=== PATIENT | female | born 1960 | race Caucasian/White ===

== ENCOUNTER 2019-06-18 23:27 | Inpatient (IN) | payer OTHER ==
[~2019-06-18] VITALS: Ht 170.2 cm; Wt 147.4 kg
--- NOTE | 2019-06-19 00:01 | NUR ---
PT BIB [facility] TO ED WITH PT C/O RIGHT FLANK PAIN, RIGHT SHOULDER PAIN THAT RADIATES TO RIGHT WRIST. PT STATES WHEN SHE TAKES A DEEP BREATH SHE HAS INCREASE IN PAIN. PT HAS PAIN TO PALPATION WELL. PT STATES TO PAIN SINCE TODAY AM, DENEIS URINARY SYMTPOMS AT THIS TIME. PT STATES SHE HAD SIMILAR PAIN IN THE PAST AND WAS GALLSTONES AND/OR KIDNEY. DOES NOT RECALL IF GALLBLADDER WAS REMOVED. PT A&OX4,NO ACUTE DISTRESS NOTED, RATES PAIN 20/10 AT THIS TIME. PT ALSO STATES SHE WAS SEEN BY PCP WITH BLOOD WORK THAT CAME BACK NORMAL "FEW DAYS AGO". MSE COMPLETED BY .
[2019-06-19 00:45] LABS: CALCIUM 9.7 mg/dL (8.5-10.1); CHLORIDE SERUM 102 mmol/L (98-107); CREATININE SERUM 0.6 mg/dL (0.6-1.0); GFR1 > 60 mL/min; GLUCOSE SERUM 148 mg/dL (74-106); POTASSIUM SERUM 3.9 mmol/L (3.5-5.1); SODIUM SERUM 140 mmol/L (136-145)
[2019-06-19 00:51] LABS: ALKALINE PHOSPHATASE 107 U/L (46-116); ALT/SGPT 53 U/L (14-59); AST/SGOT 48 U/L (15-37); BILIRUBIN TOTAL 0.6 mg/dL (0.20-1.00); LIPASE 78 IU/L (73-393); TOTAL PROTEIN, SERUM 7.5 g/dL (6.4-8.2)
[2019-06-19 01:05] LABS: BASOPHIL % 0.2 % (0-2); PLATELET COUNT 180 x10^3mcL (130-400); RED CELL DISTRIBUTION WIDTH 15.1 % (11.5-14.5)
--- NOTE | 2019-06-19 01:26 | NUR ---
PT STRAIGHT CATH PERFORMED. 150 CC OF YELLOW URINE OUTPUT. PT TOLERATED PROCEDURE WELL
--- NOTE | 2019-06-19 01:53 | NUR ---
MULTIPLE ATTEMPTS FOR IV. UNSUCCESSFUL
--- NOTE | 2019-06-19 02:38 | NUR ---
PORTABLE XRAY AT BEDSIDE
--- NOTE | 2019-06-19 03:39 | NUR ---
PT RESTING IN ED [place] AT THIS TIME. PT IS LAYING IN POSITION OF COMFORT. PT CALL LIGHT WITH IN REACH. PT LAYING ON LEFT SIDE. PT RESPS ARE E/U. NO ACD NOTED
--- NOTE | 2019-06-19 04:52 | NUR ---
PT SLEEPING IN ED GURNEY. PT IS EASILY AROUSABLE. ABIODUN CHEST RISE AND FALL NOTED. RESPS ARE E/U. PT BED IN LOWEST POSITION FOR PT SAFETY. CALL LIGHT WITHIN REACH OF PT. NO ACD NOTED
--- NOTE | 2019-06-19 07:08 | NUR ---
PT RESTING IN ED [facility] AT THIS TIME. PT RESTING ON RIGHT SIDE AT THIS TIME. PT HAS CALL LIGHT WITHIN REACH. PT IS A/O X4. PT RESPSARE E/U. NO ACD NOTED
--- NOTE | 2019-06-19 07:30 | NUR ---
GAVE PT REPORT TO YENNI PREAZA WHO TOOK REPORT FROM ME FOR THE PRIMARY RN WOJCIECH. EDILMAIN WILL BE PRIMARY RN ONCE PT IS TAKEN TO THE MED SURG FLOOR
--- NOTE | 2019-06-19 07:40 | NUR ---
RECEIVED FROM ER VIA JAM ERICKSON. NO RESP DISTRESS NOTED. O2 2LPN N/C MAINTAINED, O2SAT 96% HX OF COPD STATED USE HOME O2 2LPM N/C. OBESITY STATED USE ELECTRIC WHEHCHAIR AT HOME. NON AMBULATORY. SAVAGE CATH DRIANING TO GRAVITY YELLOW URINE IN COLOR. NO SKIN BREAKDOWN NOTED. S/L TO RAC INTACT AND PATENT. STATED HAVING BACK PAIN RADIATING TO RLQ. ORIENTING TO ROOM ENVIRONMENT. CALL LIGHT PLACED WITHIN EASY REACH. SIDERAILS UP X2.
[2019-06-19 08:13] VITALS: BP 140/66
[2019-06-19] MEDS ORDERED: ASPIR 8181 MG PO (09:14)
[2019-06-19] MEDS ORDERED: BACLOFEN5 MG PO (09:15)
[2019-06-19] MEDS ORDERED: DULOXETINE HYDR60 MG PO (09:15)
[2019-06-19] MEDS ORDERED: FORTAMET500 M1 PO (09:18)
[2019-06-19] MEDS ORDERED: ZESTRIL40 MG PO (09:18)
[2019-06-19] MEDS ORDERED: TOPROL XL50 MG PO (09:19)
[2019-06-19] MEDS ORDERED: PAXIL40 M1 PO (09:19)
[2019-06-19] MEDS ORDERED: ZYLOPRIM300 MG PO (09:20)
[2019-06-19] MEDS ORDERED: TRAZODONE150 M1 PO (09:21)
--- NOTE | 2019-06-19 09:59 | NUR ---
CALLED DOCTOR NUBIA FOR PAIN MEDICATION, DOCTOR DELACRUZ CALLED BACK AND NEW ORDER FOR TRAMADOL GIVEN VIA PHONE. WILL BE CARRIED OUT.
--- NOTE | 2019-06-19 10:44 | NUR ---
TRAMADOL 50MG PO GIVEN FOR PAIN. WILL BE MONITORED.
[2019-06-19 11:21] VITALS: BP 140/66
--- NOTE | 2019-06-19 12:10 | NUR ---
SEEN BY KALPANA ZFAAR. PATIENT WILL BE DISCHARGED HOME. PER DOCTOR NUBIA HE ALREADY SPOKE TO PATIENT'S DAUGHTER ON THE PHONE.
[2019-06-19] MEDS ORDERED: IBU600 M2 PO (12:14)
[2019-06-19] MEDS ORDERED: PROTONIX TR40 M1 PO (12:15)
--- NOTE | 2019-06-19 12:15 | NUR ---
RT MADE AWARE OF ABG ORDER.
[2019-06-19 12:27] VITALS: BP 149/84
--- NOTE | 2019-06-19 15:40 | NUR ---
HAD LARGE FORMED BM, GENARO CARE PROVIDED. DIAPER CHANGED PER PATIET'S REQUEST PRIOR TO DISCHARGE HOME.
--- NOTE | 2019-06-19 16:39 | NUR ---
DISCHARGE INSTRUCTION EXPLAINED AND GIVEN TO PATIENT WHO IS AWAKE, ALERT, ORIENTED X4. PATIENT MADE AWARE THAT SHE WILL BE PICKING UP BY [facility] TRANSPORT WITH BARIATRIC GURNEY. NO ANY DISTRESS NOTED AT THIS TIME.
--- NOTE | 2019-06-19 17:15 | NUR ---
S/L TO RAC REMOVED WITH CATHETER INTACT, DRSG APPLIED. SAVAGE CATHETER REMOVED WITH 1200 ML URINE IN COLOR OUTPUT. TRANSFERED TO BARIATRIC [facility], NO ANY DISTRESS NOTED. DISCHARGE HOME WITH STABLE CONDITION.
== END 2019-06-19 17:16 | disposition home or self-care (01) | DRG 143 ==
LOC: ED 23:27 → MU 06-19 02:47
PROVIDERS: Emergency Medicine; ADMIT Internal Medicine Pulmonary Disease
DX: J90 Pleural effusion, not elsewhere classified (principal); J96.11 Chronic respiratory failure with hypoxia; Z99.81 Dependence on supplemental oxygen; E66.2 Morbid (severe) obesity with alveolar hypoventilation; E11.9 Type 2 diabetes mellitus without complications; M10.9 Gout, unspecified; I10 Essential (primary) hypertension; F41.9 Anxiety disorder, unspecified; G47.00 Insomnia, unspecified; F32.9 Major depressive disorder, single episode, unspecified; G89.29 Other chronic pain; M54.89 Other dorsalgia; Z86.12 Personal history of poliomyelitis; Z79.84 Long term (current) use of oral hypoglycemic drugs; Z91.14 Patient's other noncompliance with medication regimen; Z88.0 Allergy status to penicillin; Z90.49 Acquired absence of other specified parts of digestive tract; Z90.710 Acquired absence of both cervix and uterus; Z79.82 Long term (current) use of aspirin; Z79.899 Other long term (current) drug therapy
CPT/HCPCS: 36600; 82962; 83880; G0378; J1650; J7620; Q0092; Q9967

== ENCOUNTER 2019-07-12 16:19 | Emergency (ER) | payer OTHER ==
[~2019-07-12] VITALS: Ht 170.2 cm; Wt 147.4 kg
[~2019-07-12 16:19] MED LIST: ASPIR 8181 MG PO; BACLOFEN5 MG PO; DULOXETINE HYDR60 MG PO; FORTAMET500 M1 PO; IBU600 M2 PO; PAXIL40 M1 PO; PROTONIX TR40 M1 PO; TOPROL XL50 MG PO; TRAZODONE150 M1 PO; ZESTRIL40 MG PO; ZYLOPRIM300 MG PO
[2019-07-12 16:34] VITALS: Ht 170.2 cm; Wt 147.4 kg
[2019-07-12 18:57] LABS: UA SPECIFIC GRAVITY 1.025 (1.005-1.035); microscopic required? YES; urine erythrocyte 1+ (NEGATIVE)
[2019-07-12 19:00] LABS: CALCIUM 10.3 mg/dL (8.5-10.1); CREATININE SERUM 1.6 mg/dL (0.6-1.0); POTASSIUM SERUM 4.9 mmol/L (3.5-5.1)
[2019-07-12 19:04] LABS: ALBUMIN 3.3 g/dL (3.4-5.0); BILIRUBIN TOTAL 0.82 mg/dL (0.20-1.00); TOTAL PROTEIN, SERUM 8.3 g/dL (6.4-8.2)
[2019-07-12 19:26] LABS: BASOPHIL % 0.3 % (0-2); PLATELET COUNT 296 x10^3mcL (130-400); RED CELL DISTRIBUTION WIDTH 15.2 % (11.5-14.5)
[2019-07-13 01:47] VITALS: BP 115/65
== END 2019-07-13 01:51 | disposition home or self-care (01) ==
LOC: ED 16:19
PROVIDERS: Emergency Medicine
DX: N39.0 Urinary tract infection, site not specified (principal); J44.9 Chronic obstructive pulmonary disease, unspecified; I10 Essential (primary) hypertension; Z88.0 Allergy status to penicillin
CPT/HCPCS: J0696; J1885; J2405; Q0092

== ENCOUNTER 2019-09-16 21:13 | Emergency (ER) | payer OTHER ==
[~2019-09-16] VITALS: Ht 170.2 cm; Wt 181.4 kg
[2019-09-16 21:18] VITALS: Ht 170.2 cm; Wt 181.4 kg
[2019-09-16] MEDS ORDERED: GABAPENTIN100 M2 PO (21:48)
[2019-09-17 15:22] VITALS: BP 120/60
== END 2019-09-17 15:22 | disposition home or self-care (01) ==
LOC: ED 21:13
DX: M54.5 Low back pain (principal); R06.02 Shortness of breath; J44.9 Chronic obstructive pulmonary disease, unspecified; I10 Essential (primary) hypertension; E11.9 Type 2 diabetes mellitus without complications; Z87.442 Personal history of urinary calculi; Z90.710 Acquired absence of both cervix and uterus
CPT/HCPCS: J1885; J7030

== ENCOUNTER 2019-09-30 03:45 | Inpatient (IN) | payer OTHER ==
[2019-09-30] VITALS (7 sets, daily range): BP systolic 102–146; BP diastolic 43–70; Ht 170.2 cm; Wt 67.1 kg
[~2019-09-30] VITALS: Ht 170.2 cm; Wt 67.1 kg
[~2019-09-30 03:45] MED LIST changes: +GABAPENTIN100 M2 PO
[2019-09-30 04:34] LABS: UA SPECIFIC GRAVITY 1.015 (1.005-1.035); microscopic required? YES; urine erythrocyte 1+ (NEGATIVE)
[2019-09-30 04:34] LABS: BASOPHIL % 0.6 % (0-2); PLATELET COUNT 177 x10^3mcL (130-400)
[2019-09-30 04:36] LABS: RED CELL DISTRIBUTION WIDTH 15.5 % (11.5-14.5)
[2019-09-30 04:37] LABS: CALCIUM 9.4 mg/dL (8.5-10.1); CARBON DIOXIDE 34.4 mmol/L (21-32); CHLORIDE SERUM 105 mmol/L (98-107); CREATININE SERUM 0.8 mg/dL (0.6-1.0); GFR1 > 60 mL/min; GLUCOSE SERUM 131 mg/dL (74-106); POTASSIUM SERUM 4.2 mmol/L (3.5-5.1); SODIUM SERUM 145 mmol/L (136-145)
[2019-09-30 04:41] LABS: ALKALINE PHOSPHATASE 149 U/L (46-116); ALT/SGPT 42 U/L (14-59); AST/SGOT 42 U/L (15-37); BILIRUBIN TOTAL 0.2 mg/dL (0.20-1.00); TOTAL PROTEIN, SERUM 6.9 g/dL (6.4-8.2)
[2019-09-30 04:42] LABS: ALBUMIN 2.8 g/dL (3.4-5.0)
[2019-09-30 07:16] LABS: CHOLESTEROL/HDL RATIO 4.4
[2019-09-30 07:26] LABS: FREE T4 1.14 ng/dL (0.76-1.46); FREE THYROXINE INDEX 2.9 ug/dL (1.4-4.5); T4(THYROXINE) 8.8 ug/dL (4.7-13.3)
[2019-09-30 07:38] LABS: T3 TOTAL 1.66 ng/mL
[2019-10-01 06:00] VITALS: BP 114/54
[2019-10-01 06:50] LABS: CALCIUM 9.8 mg/dL (8.5-10.1); CARBON DIOXIDE 38.6 mmol/L (21-32); CHLORIDE SERUM 103 mmol/L (98-107); CREATININE SERUM 0.7 mg/dL (0.6-1.0); GFR1 > 60 mL/min; GLUCOSE SERUM 124 mg/dL (74-106); MAGNESIUM 1.7 mg/dL (1.8-2.4); POTASSIUM SERUM 4.4 mmol/L (3.5-5.1); SODIUM SERUM 142 mmol/L (136-145)
[2019-10-01 07:28] LABS: BASOPHIL % 0.3 % (0-2); PLATELET COUNT 192 x10^3mcL (130-400); RED CELL DISTRIBUTION WIDTH 15.6 % (11.5-14.5)
[2019-10-01 08:02] VITALS: BP 113/51
[2019-10-01 12:40] VITALS: BP 116/48
[2019-10-01 14:44] LABS: C REACTIVE PROTEIN 5.2 mg/dL (<=0.9)
[2019-10-01 21:49] VITALS: BP 105/58
[2019-10-02 06:07] VITALS: BP 108/58
[2019-10-02 06:59] LABS: BASOPHIL % 0.4 % (0-2); PLATELET COUNT 222 x10^3mcL (130-400)
[2019-10-02 07:04] LABS: C REACTIVE PROTEIN 4.1 mg/dL (<=0.9); CHLORIDE SERUM 102 mmol/L (98-107); CREATININE SERUM 0.6 mg/dL (0.6-1.0); GFR1 > 60 mL/min; GLUCOSE SERUM 122 mg/dL (74-106); MAGNESIUM 1.8 mg/dL (1.8-2.4); POTASSIUM SERUM 4.7 mmol/L (3.5-5.1); SODIUM SERUM 143 mmol/L (136-145)
[2019-10-02 07:14] LABS: CARBON DIOXIDE 40.1 mmol/L (21-32)
[2019-10-02 07:17] LABS: RED CELL DISTRIBUTION WIDTH 15.6 % (11.5-14.5)
[2019-10-02 08:00] VITALS: BP 133/63
[2019-10-02 12:39] VITALS: BP 156/64
[2019-10-02 18:50] VITALS: BP 121/66
[2019-10-02 21:30] VITALS: BP 139/84
[2019-10-03 05:17] VITALS: BP 159/84
[2019-10-03 06:54] LABS: BASOPHIL % 0.4 % (0-2); PLATELET COUNT 213 x10^3mcL (130-400)
[2019-10-03 07:01] LABS: RED CELL DISTRIBUTION WIDTH 15.2 % (11.5-14.5)
[2019-10-03 07:03] LABS: ALKALINE PHOSPHATASE 151 U/L (46-116); ALT/SGPT 37 U/L (14-59); AST/SGOT 30 U/L (15-37); BILIRUBIN TOTAL 0.5 mg/dL (0.20-1.00); CALCIUM 9.3 mg/dL (8.5-10.1); CHLORIDE SERUM 101 mmol/L (98-107); CREATININE SERUM 0.6 mg/dL (0.6-1.0); GFR1 > 60 mL/min; GLUCOSE SERUM 113 mg/dL (74-106); POTASSIUM SERUM 4.1 mmol/L (3.5-5.1); SODIUM SERUM 142 mmol/L (136-145); TOTAL PROTEIN, SERUM 7.4 g/dL (6.4-8.2)
[2019-10-03 07:06] LABS: CARBON DIOXIDE 40.6 mmol/L (21-32)
[2019-10-03 10:00] VITALS: BP 157/87
[2019-10-03 13:05] VITALS: BP 125/61
[2019-10-03 17:52] VITALS: BP 116/43
[2019-10-03 20:37] VITALS: BP 107/45
[2019-10-04 05:04] VITALS: BP 131/62
[2019-10-04 06:43] LABS: BASOPHIL % 0.4 % (0-2); PLATELET COUNT 230 x10^3mcL (130-400)
[2019-10-04 06:49] LABS: ALKALINE PHOSPHATASE 153 U/L (46-116); ALT/SGPT 38 U/L (14-59); AST/SGOT 37 U/L (15-37); BILIRUBIN TOTAL 0.4 mg/dL (0.20-1.00); CALCIUM 9.5 mg/dL (8.5-10.1); CARBON DIOXIDE 37.6 mmol/L (21-32); CHLORIDE SERUM 103 mmol/L (98-107); CREATININE SERUM 0.7 mg/dL (0.6-1.0); GFR1 > 60 mL/min; GLUCOSE SERUM 104 mg/dL (74-106); POTASSIUM SERUM 4.1 mmol/L (3.5-5.1); SODIUM SERUM 143 mmol/L (136-145); TOTAL PROTEIN, SERUM 7.1 g/dL (6.4-8.2)
[2019-10-04 06:52] LABS: RED CELL DISTRIBUTION WIDTH 15.6 % (11.5-14.5)
[2019-10-04 07:24] LABS: ALBUMIN 2.9 g/dL (3.4-5.0)
[2019-10-04 08:25] VITALS: BP 126/73
[2019-10-04 11:29] VITALS: BP 117/91
[2019-10-04 16:20] VITALS: BP 123/80
== END 2019-10-04 21:15 | disposition home or self-care (01) | DRG 133 ==
LOC: ED 03:45 → MU 05:04 → DU 10-03 05:23
PROVIDERS: Emergency Medicine; Internal Medicine; ADMIT Hospitalist
PROC: 5A09357 Assistance with Respiratory Ventilation, Less than 24 Consecutive Hours, Continuous Positive Airway Pressure (ICD-10-PCS; principal; 2019-10-03)
PROC: 5A09357 Assistance with Respiratory Ventilation, Less than 24 Consecutive Hours, Continuous Positive Airway Pressure (ICD-10-PCS; 2019-10-04)
DX: J96.21 Acute and chronic respiratory failure with hypoxia (principal); G93.41 Metabolic encephalopathy; E87.3 Alkalosis; J44.9 Chronic obstructive pulmonary disease, unspecified; E66.2 Morbid (severe) obesity with alveolar hypoventilation; E11.9 Type 2 diabetes mellitus without complications; I10 Essential (primary) hypertension; Z68.43 Body mass index [BMI] 50.0-59.9, adult; G89.29 Other chronic pain; J96.22 Acute and chronic respiratory failure with hypercapnia; Z20.828 Contact with and (suspected) exposure to other viral communicable diseases; E83.42 Hypomagnesemia; F41.9 Anxiety disorder, unspecified; F32.9 Major depressive disorder, single episode, unspecified; Z88.0 Allergy status to penicillin; Z87.442 Personal history of urinary calculi; Z90.710 Acquired absence of both cervix and uterus; Z90.49 Acquired absence of other specified parts of digestive tract; Z79.4 Long term (current) use of insulin; Z79.899 Other long term (current) drug therapy
CPT/HCPCS: 36600; 82962; 83880; 84439; 85378; 94150; G0378; J1120; J1644; J1885; J2270; J2405; J3535; J7030; Q0092; U0003-CS